=== PATIENT | male | born 1995 | race African-American/Black ===

== ENCOUNTER 2019-07-18 23:11 | Emergency (ER) | payer SELFPAY ==
[2019-07-18] MEDS ORDERED: Ketorolac Tromethamine 30 MG/ML VIAL ONE (23:22)
== END 2019-07-19 01:55 | disposition home or self-care (01) ==
LOC: ERS 23:11
DX: J11.1 Influenza due to unidentified influenza virus with other respiratory manifestations (principal); F17.200 Nicotine dependence, unspecified, uncomplicated
CPT/HCPCS: 87081; 87430; 87804; 96361; 96374; J1885